=== PATIENT | female | born 1955 | race Caucasian/White ===

== ENCOUNTER 2016-06-10 19:30 | Emergency (ER) | payer SELFPAY ==
[~2016-06-10] VITALS: Ht 157.5 cm; Wt 69.9 kg
[2016-06-10 19:40] VITALS: BP 109/58; PULSE 80; RESP 18; TEMP 97.8; O2SAT 98
--- NOTE | 2016-06-10 20:26 | PD ---
HPI Chief Complaint: Fall Time Seen by Provider: 20:18 Travel History International Travel<30 days: No Contact w/Intl Traveler<30days: No Traveled to known affect area: No History of Present Illness HPI This 61-year-old female fell and landed on her right arm. She is having pain in the right humerus and also in the right wrist. She denies any medical problems. The fall happened about an hour or 2 ago area she did not hit her head. She has pain in the right arm PFS Past Medical History Medical History: Denies Significant Hx Tetanus Vaccination: > 5 Years Influenza Vaccination: No Past Surgical History Section: Yes Tonsillectomy: Yes Social History Alcohol Use: No Tobacco Use: Yes (1 PPD) Substance Use: No Allergies-Medications (Allergen,Severity, Reaction): Coded Allergies: No Known Allergies (Unverified , 06/10/16) Reported Meds & Prescriptions Reported Meds & Active Scripts Active No Active Prescriptions or Reported Medications Review of Systems General / Constitutional: No: Fever, Chills Eyes: No: Diploplia, Blurred Vision HENT: No: Headaches, Vertigo Cardiovascular: No: Chest Pain or Discomfort, Palpitations Respiratory: No: Cough, Shortness of Breath Gastrointestinal: No: Vomiting, Diarrhea Genitourinary: No: Urgency, Frequency Musculoskeletal: Positive: Myalgias, Pain Physical Exam Narrative GENERAL: Well-developed female SKIN: Focused skin assessment warm/dry. HEAD: Atraumatic. Normocephalic. EYES: Pupils equal and round. No scleral icterus. No injection or drainage. ENT: No nasal bleeding or discharge. Mucous membranes pink and moist. NECK: Trachea midline. No JVD. CARDIOVASCULAR: Regular rate and rhythm. No murmur appreciated. RESPIRATORY: No accessory muscle use. Clear to auscultation. Breath sounds equal bilaterally. GASTROINTESTINAL: Abdomen soft, non-tender, nondistended. Hepatic and splenic margins not palpable. MUSCULOSKELETAL: No obvious deformities. She is tender along the course of the humerus. Skin is intact. She also has some tenderness to palpation of the wrist. NEUROLOGICAL: Awake and alert. No obvious cranial nerve deficits. Motor grossly within normal limits. Normal speech. PSYCHIATRIC: Appropriate mood and affect; insight and judgment normal. Data Data Last Documented VS Vital Signs Date Time Temp Pulse Resp B/P Pulse Ox O2 Delivery O2 Flow Rate FiO2 06/10/16 19:50 06/10/16 19:40 97.8 80 18 98 Orders Humerus (Min 2vws) (06/10/16 20:22) Wrist, Complete ([id number]) (06/10/16 20:22) Oxycodone-Acetamin 5-325 Mg (Percocet (06/10/16 20:30) MDM Medical Decision Making Medical Screen Exam Complete: Yes Emergency Medical Condition: Yes Medical Record Reviewed: Yes Differential Diagnosis Differential includes contusion, fracture, Narrative Course X-ray of the right wrist is negative. X-ray of the right humerus shows a fracture of the proximal humerus Diagnosis Primary Impression: Fracture of proximal humerus Qualified Code: S42.201A - Closed fracture of proximal end of right humerus, unspecified fracture morphology, initial encounter Scripts No Active Prescriptions or Reported Meds Disposition: 01 DISCHARGE HOME Condition: Stable Leonardo Cabrera MD Jun 10, 2016 20:26
[2016-06-10] MEDS ORDERED: oxyCODONE/ACETAMINOPHEN 5 MG/325 MG TAB PO ONE (20:30)
--- NOTE | 2016-06-10 21:21 | RADHPO ---
EXAM DATE/TIME: 06/10/2016 20:45 [facility] COMPARISON: No previous studies available for comparison. INDICATIONS : Fall. Right wrist pain. MEDICAL HISTORY : None. SURGICAL HISTORY : None. ENCOUNTER: Initial ACUITY: 1 day PAIN SCORE: 5/10 LOCATION: Right upper extremity FINDINGS: Three view examination of the right wrist demonstrates no soft tissue swelling, dislocation, or fract ure. The carpal bones are in normal alignment. The joint spaces are maintained. Bony mineralizatio n is normal. CONCLUSION: Normal examination for a patient of this age. Bulmaro Gandhi MD on June 10, 2016 at 21:17 Board Certified Radiologist. This report was verified electronically.
--- NOTE | 2016-06-10 21:24 | RADHPO ---
EXAM DATE/TIME: 06/10/2016 20:51 [facility] COMPARISON: No previous studies available for comparison. INDICATIONS : Fall. Severe right upper arm pain. MEDICAL HISTORY : None. SURGICAL HISTORY : None. ENCOUNTER: Initial ACUITY: 1 day PAIN SCORE: 9/10 LOCATION: Right upper extremity FINDINGS: Two view examination of the right humerus demonstrates mildly displaced fracture of the proximal te elias extending through the greater tuberosity. No dislocation. No other fractures. CONCLUSION: 1. Mildly displaced fracture of the proximal humerus extending through the greater tuberosity. No dis location. Bulmaro Gandhi MD on June 10, 2016 at 21:21 Board Certified Radiologist. This report was verified electronically.
[2016-06-10] MEDS ORDERED: PERC5TAB12 PO (21:42)
== END 2016-06-10 22:05 | disposition home or self-care (01) ==
LOC: PHEFT 19:30
DX: S42.291A Other displaced fracture of upper end of right humerus, initial encounter for closed fracture (principal); F17.210 Nicotine dependence, cigarettes, uncomplicated; W19.XXXA Unspecified fall, initial encounter; Y93.9 Activity, unspecified; Y92.9 Unspecified place or not applicable; Y99.8 Other external cause status
CPT/HCPCS: 29240; 73060; 73110